=== PATIENT | female | born 1980 | race Caucasian/White ===

== ENCOUNTER 2019-10-16 11:31 | Emergency (ER) | payer BC ==
--- NOTE | 2019-10-16 11:39 | UC ---
Shoulder Pain HPI - HPI Summary HPI Summary: 39 yo female presents with RIGHT shoulder pain. She tells me that she is quite active with yoga and going to the gym. Gradually over the last 3 weeks she has noticed aching right shoulder pain with "clicking" during certain movement. She has been taking ibuprofen and resting, which helps. Participating in weight training and yoga make her pain worse. She is right handed. Denies specific injury, numbness, tingling. - History of Current Complaint Stated Complaint: R SHOULDER PAIN Time Seen by Provider: 10/16/19 11:38 Hx Obtained From: Patient Onset/Duration: Gradual Onset Timing: Constant Severity Initially: Mild Severity Currently: Mild Pain Intensity: 2 Pain Scale Used: 0-10 Numeric - Allergies/Home Medications Allergies/Adverse Reactions: Allergies Allergy/AdvReac Type Severity Reaction Status Date / Time No Known Allergies Allergy Verified 10/16/19 11:41 Home Medications: Home Medications FLUoxetine CAP* [PROzac CAP*] 20 mg PO DAILY 05/13/19 [History Confirmed ] Ibuprofen [Ibu-200] 800 mg PO TID PRN 05/13/19 [History Confirmed 10/16/19] LORazepam [Lorazepam] 2 mg PO BEDTIME 05/13/19 [History Confirmed 10/16/19] Multivitamin [Once Daily] 1 each PO DAILY 05/13/19 [History Confirmed 10/16/19] PMH/Surg Hx/FS Hx/Imm Hx - Additional Past Medical History Additional PMH: Migraines Psychological History: Anxiety - Surgical History Surgical History: None - Family History Known Family History: Positive: Other - Migarines - Social History Occupation: Employed Full-time Lives: With Family Alcohol Use: Weekly Alcohol Amount: 5 Substance Use Type: Marijuana Smoking Status (MU): Never Smoked Tobacco Review of Systems All Other Systems Reviewed And Are Negative: No Constitutional: Positive: Negative Skin: Positive: Negative Respiratory: Positive: Negative Cardiovascular: Positive: Negative Neurovascular: Positive: Negative Musculoskeletal: Positive: Other: - Right shoulder pain Neurological/Mental Status: Positive: Negative Psychological: Positive: Negative Physical Exam - Summary Physical Exam Summary: GENERAL: NAD. WDWN. No pain distress. SKIN: No rashes, sores, lesions, or open wounds. CHEST: No accessory muscle use. Breathing comfortably and in no distress. CV: Pulses intact radial and ulnar. Cap refill <2seconds MSK: FROM. Strength 5/5. No edema or obvious bony deformities. Positive: roger hurtado, janie, lamberto, and law. NEURO: Alert. Sensations intact C4-T1 b/l PSYCH: Age appropriate behavior. Triage Information Reviewed: Yes Vital Signs: Vital Signs: Temp Pulse Resp BP Pulse Ox 97.5 F 70 20 104/65 100 10/16/19 11:36 10/16/19 11:36 10/16/19 11:36 10/16/19 11:36 10/16/19 11:36 Vital Signs Reviewed: Yes Diagnostics - Radiology Shoulder XR Radiology Interpretation Completed By: Radiologist Summary of Radiographic Findings: IMPRESSION: No fracture of the right shoulder is noted. Shoulder Course/Dx - Course Course Of Treatment: XR as above. I suspect her discomfort is from tendinitis to the shoulder, likely due from yoga and strength training. Recommended physical therapy, rest, ice, and continuing NSAIDs. Advised to refrain from strength training for ~1week to allow shoulder to rest and heal. Recommend f/u with [facility] if symptoms do not improve. - Differential Dx/Diagnosis Provider Diagnosis: Shoulder tendinitis Discharge ED - Sign-Out/Discharge Documenting (check all that apply): Patient Departure All imaging exams completed and their final reports reviewed: Yes - Discharge Plan Condition: Stable Disposition: HOME Patient Education Materials: Rotator Cuff Tendinitis (ED), Exercises for Shoulder Flexion and Extension (ED), Exercises for Shoulder Abduction and Adduction (ED) Referrals: No Primary Care Phys,NOPCP [Primary Care Provider] - [facility] [Provider Group] - If Needed Additional Instructions: If you develop a fever, shortness of breath, chest pain, new or worsening symptoms - please call your PCP or go to the ED immediately. The x-ray of your shoulder was normal today. I suspect your shoulder pain is due to overuse tendinitis and should improve with rest, ice, continuation of NSAIDs such as ibuprofen, and refraining from strength training or heavy lifting. I recommend refraining from yoga/gym/strength training for at least 1 week to allow your shoulder to rest and heal - then may gradually return to activities as tolerated. If your symptoms do not improve - I recommend that you call [facility] at the number below to schedule an appointment for a recheck - Billing Disposition and Condition Condition: STABLE Disposition: Home
[2019-10-16 11:41] VITALS: BP 104/65
== END 2019-10-16 12:18 | disposition home or self-care (01) ==
LOC: UCEAST 11:31
DX: M77.9 Enthesopathy, unspecified (principal); F41.9 Anxiety disorder, unspecified; Z79.899 Other long term (current) drug therapy
CPT/HCPCS: 99211; G0463